=== PATIENT | female | born 1950 | race Caucasian/White ===

== ENCOUNTER 2017-04-15 01:54 | Emergency (ER) | payer OTHER ==
[~2017-04-15 01:54] MED LIST: FERROUS SULFATE; GLIM2TAB2 PO; LEVO112T7 PO; OMEP20CA10 PO; PRAV40TA58 PO; QUIN40TA14 PO; SERT50TA; SITA100T11 PO
== END 2017-04-15 03:00 | disposition left against medical advice (07) ==
LOC: ER 01:54
DX: I10 Essential (primary) hypertension (principal); Z53.21 Procedure and treatment not carried out due to patient leaving prior to being seen by health care provider